=== PATIENT | female | born 1945 | race Caucasian/White ===

== ENCOUNTER → 2017-03-15 | Outpatient (CLI) | payer OTHER ==
[~2017-03-15] MED LIST: ACETAMINOPHEN-1 EAC1 PO; CLONAZEPAM; COZAAR; KAPIDEX30 MG PO; LIPITOR10 MG PO; ONDANSETRON HCL4 M2 PO; REGLAN; TOPROL XL50 MG PO; VESICARE
== END ==
LOC: M.NUC 03-11 08:11
DX: E83.52 Hypercalcemia (principal); M17.12 Unilateral primary osteoarthritis, left knee; M19.012 Primary osteoarthritis, left shoulder; M19.011 Primary osteoarthritis, right shoulder

== ENCOUNTER 2017-12-20 12:34 | Emergency (ER) | payer OTHER ==
[~2017-12-20] VITALS: Ht 172.7 cm; Wt 103.0 kg
[~2017-12-20 12:34] MED LIST changes: -ACETAMINOPHEN-1 EAC1 PO; -ONDANSETRON HCL4 M2 PO
[2017-12-20 12:52] LABS: URINE BILIRUBIN NEGATIVE (Negative); URINE BLOOD NEGATIVE (Negative); URINE CLARITY CLEAR; URINE COLOR YELLOW; URINE GLUCOSE-RANDOM NEGATIVE (Negative); URINE KETONES NEGATIVE (Negative); URINE LEUKOCYTES-REFLEX NEGATIVE (Negative); URINE NITRITE-REFLEX NEGATIVE (Negative); URINE PROTEIN NEGATIVE (Negative); URINE UROBILINOGEN 0.2 E.U./dl (0.2-1.0)
[2017-12-20 13:21] LABS: ABSOLUTE BASOPHILS 0.1 thou/uL (0.0-0.2); ABSOLUTE EOSINOPHILS 0.1 thou/uL (0.0-0.7); ABSOLUTE LYMPHOCYTES 1.5 thou/uL (0.8-5.3); ABSOLUTE MONOCYTES 0.6 thou/uL (0.0-1.2); ABSOLUTE NEUTROPHILS 9.3 thou/uL (1.6-8.1); BASOPHILS 0.5 %; EOSINOPHILS 0.5 %; HEMATOCRIT 42.2 % (37.0-47.0); HEMOGLOBIN 13.7 gm/dL (12.0-15.0); LYMPHOCYTES 12.8 %; MCH 27.1 pg (26.0-34.0); MCHC 32.4 g/dL (28.0-37.0); MCV 83.6 fL (80.0-100.0); MONOCYTES 5.3 %; MPV 10.2 fl. (7.2-11.1); NUCLEATED RBCS 0 /100WBC; PLATELET COUNT* 213 thou/uL (150-400); POLYS 80.9 %; RBC 5.05 mil/uL (4.20-5.00); RDW-CV 14.2 % (10.5-14.5); WBC 11.5 thou/uL (4.0-11.0)
[2017-12-20 13:29] LABS: ANION GAP 7 mmol/L (7-16); BUN 20 mg/dL (7-18); CALCIUM 10.4 mg/dL (8.5-10.1); CHLORIDE 105 mmol/L (98-107); CO2 28 mmol/L (21-32); CREATININE 1.1 mg/dL (0.6-1.3); GLUCOSE 113 mg/dL (70-99); SODIUM 140 mmol/L (136-145)
[2017-12-20 13:36] LABS: ALBUMIN 3.3 g/dL (3.4-5.0); ALKALINE PHOSPHATASE 169 U/L (46-116); LIPASE 107 U/L (73-393); SGOT 17 U/L (15-37); SGPT 23 U/L (30-65); TOTAL BILIRUBIN 0.4 mg/dL (<0.1-1.0); TOTAL PROTEIN 7.3 g/dL (6.4-8.2); TROPONIN-I LEVEL <0.06 ng/mL (<0.06)
[2017-12-20] MEDS ORDERED: ONDANSETRON HCL4 M2 PO (16:33)
[2017-12-20] MEDS ORDERED: ACETAMINOPHEN-1 EAC1 PO (16:33)
[2017-12-20 16:41] VITALS: BP 156/93
--- NOTE | 2017-12-20 17:14 | EKG ---
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: : 1945 Requested By: Vanessa Munson Order Number: [id number] MD: Tin Valdez Measurements Intervals [place] Rate: 66 P: 40 CA: 185 QRS: -36 QRSD: 112 T: 34 QT: 418 QTc: 438 Interpretive Statements Sinus rhythm Probable left atrial enlargement Borderline IVCD with LAD Abnormal R-wave progression, late transition Borderline T abnormalities, anterior leads No previous ECG available for comparison Electronically Signed On 12-20-2017 17:13:51 [employer]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
== END 2017-12-20 16:42 | disposition home or self-care (01) ==
LOC: M.ERS 12:34
PROVIDERS: Nurse Practitioner Family
DX: K80.20 Calculus of gallbladder without cholecystitis without obstruction (principal); Z90.710 Acquired absence of both cervix and uterus

== ENCOUNTER 2018-07-24 10:52 | Emergency (ER) | payer OTHER ==
[~2018-07-24] VITALS: Ht 172.7 cm; Wt 68.0 kg
[~2018-07-24 10:52] MED LIST changes: +ACETAMINOPHEN-1 EAC1 PO; +ONDANSETRON HCL4 M2 PO
[2018-07-24] MEDS ORDERED: LEVOTHYROXINE100 MC1 IV (11:10)
[2018-07-24] MEDS ORDERED: OSTERA TABLET1 EAC1 PO (11:10)
[2018-07-24] MEDS ORDERED: ZANTAC 150MG T150 MG PO (11:10)
[2018-07-24] MEDS ORDERED: IMIPRAMINE HCL50 M2 PO (11:11)
[2018-07-24] MEDS ORDERED: NIZORAL120 ML (11:11)
[2018-07-24] MEDS ORDERED: IBUPROFEN 600600 M1 PO (12:55)
[2018-07-24] MEDS ORDERED: NORCO 5-325 TA1 EAC1 PO (12:55)
[2018-07-24 13:14] VITALS: BP 151/90
== END 2018-07-24 13:16 | disposition home or self-care (01) ==
LOC: M.ERS 10:52
DX: S42.291A Other displaced fracture of upper end of right humerus, initial encounter for closed fracture (principal); Z90.710 Acquired absence of both cervix and uterus; W18.39XA Other fall on same level, initial encounter; Y93.89 Activity, other specified; Y92.89 Other specified places as the place of occurrence of the external cause; Y99.8 Other external cause status

== ENCOUNTER → 2018-08-12 | Outpatient (CLI) | payer OTHER ==
[~2018-08-12] MED LIST changes: +IBUPROFEN 600600 M1 PO; +IMIPRAMINE HCL50 M2 PO; +LEVOTHYROXINE100 MC1 IV; +NIZORAL120 ML; +NORCO 5-325 TA1 EAC1 PO; +OSTERA TABLET1 EAC1 PO; +ZANTAC 150MG T150 MG PO
== END ==
LOC: M.ULTRA 16:15
DX: S42.251A Displaced fracture of greater tuberosity of right humerus, initial encounter for closed fracture (principal); S22.31XA Fracture of one rib, right side, initial encounter for closed fracture; M19.041 Primary osteoarthritis, right hand; W19.XXXA Unspecified fall, initial encounter; Y93.89 Activity, other specified; Y92.89 Other specified places as the place of occurrence of the external cause; Y99.8 Other external cause status

== ENCOUNTER → 2018-08-21 | Outpatient (CLI) | payer OTHER | LOC: M.ULTRA 10:13 | DX: M79.89 Other specified soft tissue disorders (principal); M79.604 Pain in right leg ==

== ENCOUNTER → 2018-12-31 | Outpatient (CLI) | payer OTHER | LOC: M.ULTRA 12:55 | DX: R39.15 Urgency of urination (principal); R35.0 Frequency of micturition; M79.89 Other specified soft tissue disorders ==

== ENCOUNTER 2019-07-13 11:06 | Emergency (ER) | payer OTHER ==
[~2019-07-13] VITALS: Ht 172.7 cm; Wt 103.0 kg
[~2019-07-13 11:06] MED LIST changes: -CLONAZEPAM; +CLONAZEPAM 1 MG1 M1 PO; -COZAAR; +COZAAR100 MG PO; -LEVOTHYROXINE100 MC1 IV; +SYNTHROID112 MC1 PO
[2019-07-13] MEDS ORDERED: COLESTID1 GM PO (11:26)
[2019-07-13] MEDS ORDERED: OMEPRAZOLE40 MG PO (11:26)
[2019-07-13 12:52] VITALS: BP 124/76
== END 2019-07-13 12:53 | disposition home or self-care (01) ==
LOC: M.ERS 11:06
DX: S80.01XA Contusion of right knee, initial encounter (principal); M13.851 Other specified arthritis, right hip; M70.61 Trochanteric bursitis, right hip; I10 Essential (primary) hypertension; K21.9 Gastro-esophageal reflux disease without esophagitis; E03.9 Hypothyroidism, unspecified; R11.0 Nausea; Z90.710 Acquired absence of both cervix and uterus; Z79.899 Other long term (current) drug therapy; W19.XXXA Unspecified fall, initial encounter; Y93.89 Activity, other specified; Y92.89 Other specified places as the place of occurrence of the external cause; Y99.8 Other external cause status

== ENCOUNTER → 2019-08-05 | Outpatient (CLI) | payer OTHER ==
[~2019-08-05] MED LIST changes: +COLESTID1 GM PO; +OMEPRAZOLE40 MG PO
== END ==
LOC: M.RAD 14:08
PROVIDERS: ATTEND Internal Medicine
DX: M47.896 Other spondylosis, lumbar region (principal); M54.5 Low back pain

== ENCOUNTER → 2019-08-25 | Outpatient (CLI) | payer OTHER | LOC: M.MRI 13:45 | PROVIDERS: ATTEND Internal Medicine | DX: M47.816 Spondylosis without myelopathy or radiculopathy, lumbar region (principal); M51.35 Other intervertebral disc degeneration, thoracolumbar region; M48.061 Spinal stenosis, lumbar region without neurogenic claudication; M54.41 Lumbago with sciatica, right side ==

== ENCOUNTER → 2019-09-14 | Outpatient (CLI) | payer OTHER ==
[~2019-09-14] MED LIST changes: +CLONAZEPAM2 MG PO; +COLESTIPOL HCL1 G1 PO; +COZAAR 25 MG TA25 M2 PO; +DERMACINRX5000 UNIT PO; +LEVO-T100 MCG PO; +LORCET 5-325 M1 EACH PO; +MELOXICAM15 MG PO; +METOPROLOL SUCC50 MG PO; +NIZORAL120 ML TRANSDERM
== END ==
LOC: M.PC 00:57
PROVIDERS: ATTEND Physical Medicine & Rehabilitation
DX: M48.061 Spinal stenosis, lumbar region without neurogenic claudication (principal); M51.16 Intervertebral disc disorders with radiculopathy, lumbar region; M47.816 Spondylosis without myelopathy or radiculopathy, lumbar region; M54.5 Low back pain; M79.604 Pain in right leg

== ENCOUNTER → 2019-11-30 | Outpatient (CLI) | payer OTHER ==
[~2019-11-30] MED LIST changes: +IBUPROFEN200 MG PO
== END ==
LOC: M.PC 08:56
PROVIDERS: ATTEND Physical Medicine & Rehabilitation
DX: M51.16 Intervertebral disc disorders with radiculopathy, lumbar region (principal); M47.26 Other spondylosis with radiculopathy, lumbar region; M48.061 Spinal stenosis, lumbar region without neurogenic claudication; M25.852 Other specified joint disorders, left hip; M25.851 Other specified joint disorders, right hip; Z68.32 Body mass index [BMI] 32.0-32.9, adult

== ENCOUNTER → 2019-12-09 | Outpatient (CLI) | payer OTHER | END | disposition home or self-care (01) | LOC: M.PC 07:59 | PROVIDERS: ATTEND Physical Medicine & Rehabilitation | DX: M54.5 Low back pain (principal); M19.90 Unspecified osteoarthritis, unspecified site; Z79.899 Other long term (current) drug therapy ==

== ENCOUNTER → 2019-12-16 | Outpatient (CLI) | payer OTHER | LOC: M.PC 07:40 | PROVIDERS: ATTEND Physical Medicine & Rehabilitation | DX: M47.26 Other spondylosis with radiculopathy, lumbar region (principal); M48.061 Spinal stenosis, lumbar region without neurogenic claudication; M16.11 Unilateral primary osteoarthritis, right hip ==

== ENCOUNTER → 2019-12-28 | Outpatient (CLI) | payer OTHER | END | disposition home or self-care (01) | LOC: M.PC 10:02 | PROVIDERS: ATTEND Physical Medicine & Rehabilitation | DX: M16.11 Unilateral primary osteoarthritis, right hip (principal); Z79.899 Other long term (current) drug therapy; Z88.8 Allergy status to other drugs, medicaments and biological substances ==

== ENCOUNTER → 2020-01-11 | Outpatient (CLI) | payer OTHER | LOC: M.PC 08:20 | PROVIDERS: ATTEND Physical Medicine & Rehabilitation | DX: M51.16 Intervertebral disc disorders with radiculopathy, lumbar region (principal); M47.26 Other spondylosis with radiculopathy, lumbar region; M16.11 Unilateral primary osteoarthritis, right hip; M70.61 Trochanteric bursitis, right hip; Z79.899 Other long term (current) drug therapy ==

== ENCOUNTER → 2020-01-18 | Outpatient (CLI) | payer OTHER | END | disposition home or self-care (01) | LOC: M.PC 08:38 | PROVIDERS: ATTEND Physical Medicine & Rehabilitation | DX: M47.816 Spondylosis without myelopathy or radiculopathy, lumbar region (principal); M54.5 Low back pain; Z98.890 Other specified postprocedural states; Z79.899 Other long term (current) drug therapy; Z90.710 Acquired absence of both cervix and uterus; Z90.49 Acquired absence of other specified parts of digestive tract ==

== ENCOUNTER → 2020-02-01 | Outpatient (CLI) | payer OTHER | LOC: M.PC 07:48 | PROVIDERS: ATTEND Physical Medicine & Rehabilitation | DX: M47.26 Other spondylosis with radiculopathy, lumbar region (principal); M16.11 Unilateral primary osteoarthritis, right hip; M48.061 Spinal stenosis, lumbar region without neurogenic claudication; M75.51 Bursitis of right shoulder ==

== ENCOUNTER → 2020-03-16 | Outpatient (CLI) | payer OTHER | LOC: M.RAD 13:05 | PROVIDERS: ATTEND Internal Medicine | DX: Z12.31 Encounter for screening mammogram for malignant neoplasm of breast (principal); M81.0 Age-related osteoporosis without current pathological fracture; Z78.0 Asymptomatic menopausal state ==

== ENCOUNTER → 2020-03-29 | Outpatient (CLI) | payer OTHER | LOC: M.ULTRA 07:50 | PROVIDERS: ATTEND Internal Medicine | DX: K76.0 Fatty (change of) liver, not elsewhere classified (principal); R74.8 Abnormal levels of other serum enzymes ==

== ENCOUNTER → 2020-04-04 | Outpatient (CLI) | payer OTHER | LOC: M.NUC 03-29 13:32 | PROVIDERS: ATTEND Internal Medicine | DX: E21.3 Hyperparathyroidism, unspecified (principal) ==

== ENCOUNTER → 2020-05-23 | Outpatient (CLI) | payer OTHER ==
[2020-05-23 08:46] LABS: CALCIUM 8.8 mg/dL (8.5-10.1); CREATININE 1.2 mg/dL (0.6-1.3); PHOSPHORUS* 2.6 mg/dL (2.5-4.9)
== END ==
LOC: M.LAB 07:54
DX: D35.1 Benign neoplasm of parathyroid gland (principal)